=== PATIENT | male | born 1990 | race Caucasian/White ===

== ENCOUNTER 2023-10-15 15:43 | Inpatient (IN) | payer MEDICAID ==
[~2023-10-15] VITALS: Ht 172.7 cm; Wt 49.4 kg
[2023-10-15 15:55] VITALS: BP_SYST 82; PULSE 111; RESP 18; TEMP 96; O2SAT 96
[2023-10-15] MEDS: CLINDAMYCIN 900 mg/50mL D5W 50 ML IV ONE (16:45)
[2023-10-15] MEDS: VANCOMYCIN HCL 1,000 MG in NS 250 ML IV ONE (16:45)
[2023-10-15] MEDS: NACL 0.9% 2,000 ML IV ONE (17:19)
[2023-10-15] MEDS ORDERED: PIPERACILLIN/TAZOBACTAM 3.375 GM/VIAL (ZOSYN) IV ONE (17:23)
[2023-10-15] MEDS ORDERED: VANCOMYCIN HCL 1000 MG/VIAL IV ONE (17:23)
[2023-10-15] MEDS: PIPERACILLIN/TAZO 3.375 GM in NS 50 ML IV ONE (17:51)
[2023-10-15 18:27] LABS: INR 2.8 (0.80-1.20)
[2023-10-15] MEDS: DEXTROSE 50% JECT 50 ML DISP.SYRIN IVP ONE (18:37)
[2023-10-15 18:39] LABS: PROTHROMBIN TIME 28.1 SECS (9.5-12.5)
[2023-10-15 18:56] LABS: ALANINE AMINOTRANSFERASE 17 U/L (12-78); ALBUMIN 0.9 g/dL (3.4-4.8); ALCOHOL, BLOOD < 3 mg/dL (<10); ANION GAP 11 (5-15); ASPARTATE AMINOTRANSFERASE 37 U/L (10-37); BILIRUBIN,DIRECT 2.5 mg/dL (0.0-0.3); CARBON DIOXIDE 19 mmol/L (23-29); CHLORIDE 99 mmol/L (98-107); CREATININE 1.86 mg/dL (0.55-1.30); GFR AFRICAN AMERICAN 55 mL/min (>90); GFR NON AFRICAN-AMERICAN 45 mL/min (>90); GLUCOSE 65 mg/dL (74-106); SODIUM SERUM 129 mmol/L (136-145); THYROID STIMULATING HORMONE 2.52 uIu/mL (0.34-4.82); TOTAL BILIRUBIN 3.4 mg/dL (0.0-1.0); TOTAL PROTEIN, SERUM 6.8 g/dL (6.4-8.3); UREA NITROGEN, BLOOD 26 mg/dL (8-21)
[2023-10-15 18:57] LABS: CALCIUM 6.6 mg/dL (8.4-11.0)
[2023-10-15 18:59] LABS: HEMOGLOBIN 7.1 g/dL (14.0-18.0); RED CELL DISTRIBUTION WIDTH 16.2 % (9.0-15.0)
[2023-10-15] MEDS: NACL 0.9% 1,000 ML IV ONE (19:05)
[2023-10-15 19:22] LABS: PLATELET COUNT (AUTO) 39 K/uL (130-430); WHITE BLOOD COUNT (AUTO) 1.6 K/uL (4.8-10.8)
[2023-10-15] MEDS ORDERED: NOREPINEPHRINE 4 MG/4 ML VIAL IV ONE (19:57)
[2023-10-15 20:10] LABS: PHOSPHORUS 3.5 mg/dL (2.7-4.5)
[2023-10-15] MEDS: NOREPINEPHRINE BITARTRATE 4 MG in NS 246 ML IV ONE (20:30)
[2023-10-15 20:31] LABS: ANISOCYTOSIS 1+; ATYPICAL LYMPHOCYTES % 9 % (0-0); BAND % (MANUAL) 12 % (0-6); BASOPHILS % (MANUAL) 0 % (0-2); EOSINOPHILS % (MANUAL) 0 % (0-7); LYMPHOCYTES % (MANUAL) 15 % (20-46); MONOCYTES % (MANUAL) 58 % (0-11); PLATELET ESTIMATE DECREASED (ADEQUATE)
[2023-10-15 20:32] LABS: OVALOCYTES MODERATE; TEAR DROP CELLS MODERATE
[2023-10-15] MEDS ORDERED: CALCIUM GLUCONATE 1 GM/10 ML VIAL ONE (21:45)
[2023-10-15] MEDS: ALBUMIN HUMAN 25% 100 ML IV ONE (22:03)
[2023-10-15 22:19] LABS: RED BLOOD CELL COUNT(AUTO) 2.29 MIL/uL (4.2-6.2)
[2023-10-15 22:24] LABS: MEAN CORPUSCULAR VOLUME 87 fL (79.0-98.0)
[2023-10-15 22:28] LABS: MEAN CORPUSCULAR HEMOGLOBIN 31 pg (27-31)
[2023-10-15 22:29] LABS: MEAN CORPUSCULAR HGB CONC 35 % (32-36)
[2023-10-15 22:38] LABS: ERYTHROCYTE SEDIMENTATION RATE 36 MM/HR (0-15)
[2023-10-15] MEDS: CALCIUM GLUCONATE 1 GM in NS 100 ML IV ONE (23:30)
[2023-10-16] VITALS (22 sets, daily range): BP systolic 81–123; PULSE 86–107; RESP 15–26; TEMP 97.1–97.6; O2SAT 91–100
[2023-10-16] MEDS: NACL 0.9% 1,000 ML IV SCH (00:23)
[2023-10-16] MEDS: KCL 20 mEq in 100 mL (PREMIX) 100 ML IV ONE (00:33)
[2023-10-16] MEDS: MAGNESIUM SULFATE 50 ML IV ONE (04:16)
[2023-10-16] MEDS: NOREPINEPHRINE BITARTRATE 4 MG in NS 246 ML IV PRN (06:53)
[2023-10-16 09:20] LABS: INR 2.7 (0.80-1.20); PROTHROMBIN TIME 26.3 SECS (9.5-12.5)
[2023-10-16] MEDS ORDERED: INSULIN REGULAR, HUMAN 100 UNITS/ML, 3 ML VIAL (humuLIN R) SUBCUT PRN (09:30)
[2023-10-16] MEDS ORDERED: NALOXONE HCL 0.4 MG/ML AMP (NARCAN) IVP PRN ×2 (09:30)
[2023-10-16] MEDS ORDERED: HYDROcodone/ACETAMIN 10-325 MG TAB PO PRN (09:30)
[2023-10-16] MEDS ORDERED: ACETAMINOPHEN 325 MG TABLET PO PRN (10:00)
[2023-10-16 10:48] LABS: BASOPHILS % (AUTO) 0.3 % (0.0-2.0); EOSINOPHILS % (AUTO) 0.4 % (0.0-4.0); HEMATOCRIT 30.5 % (36-54); HEMOGLOBIN 10.7 g/dL (14.0-18.0); LYMPHOCYTES # (AUTO) 1.5 K/uL (1.0-5.5); LYMPHOCYTES % (AUTO) 37.1 % (20.5-51.5); MEAN CORPUSCULAR HEMOGLOBIN 31 pg (27-31); MEAN CORPUSCULAR HGB CONC 35 % (32-36); MEAN CORPUSCULAR VOLUME 87 fL (79.0-98.0); MONOCYTES # (AUTO) 1.2 K/uL (0.0-1.0); MONOCYTES % (AUTO) 30.8 % (1.7-9.3); NEUTROPHILS # (AUTO) 1.3 K/uL (1.8-7.7); NEUTROPHILS % (AUTO) 31.4 % (40.0-70.0); PLATELET COUNT (AUTO) 73 K/uL (130-430); RED BLOOD CELL COUNT(AUTO) 3.49 MIL/uL (4.2-6.2); RED CELL DISTRIBUTION WIDTH 16.9 % (9.0-15.0)
[2023-10-16 11:06] LABS: ALBUMIN 1.1 g/dL (3.4-4.8); CREATININE 1.72 mg/dL (0.55-1.30); PHOSPHORUS 3.3 mg/dL (2.7-4.5); POTASSIUM 3.3 mmol/L (3.5-5.1); TOTAL BILIRUBIN 4.8 mg/dL (0.0-1.0); TOTAL PROTEIN, SERUM 6.4 g/dL (6.4-8.3)
[2023-10-16 11:07] LABS: CALCIUM 6.9 mg/dL (8.4-11.0)
[2023-10-16] MEDS: PIPERACILLIN/TAZO 3.375/DEX-IS 50 ML IV SCH (12:09)
[2023-10-16] MEDS ORDERED: FOLIC ACID 1 MG, THIAMINE HCL 100 MG, MAGNESIUM SULFATE 1 GM, MVI 10 ML in NACL 0.9% 1,... IV SCH (16:15)
[2023-10-16] MEDS: FOLIC ACID 1 MG, MVI 10 ML in NACL 0.9% 1,000 ML IV SCH (18:05)
[2023-10-16] MEDS: THIAMINE HCL 100 MG, MAGNESIUM SULFATE 1 GM in NS 100 ML IV SCH (18:05)
[2023-10-16] MEDS ORDERED: NOREPINEPHRINE BITARTRATE 4 MG in NS 246 ML IV PRN (19:00)
[2023-10-16] MEDS: CLINDAMYCIN 600 mg/50mL D5W 50 ML IV SCH (19:11)
[2023-10-16] MEDS: HYDROcodone/ACETAMIN 5-325 MG TAB (NORCO/ VICODIN) PO PRN (20:00)
[2023-10-17] VITALS (26 sets, daily range): BP systolic 76–129; PULSE 79–108; RESP 10–24; TEMP 96.7–98.6; O2SAT 89–100
[2023-10-17 05:31] LABS: CREATININE 1.76 mg/dL (0.55-1.30); PHOSPHORUS 3.4 mg/dL (2.7-4.5)
[2023-10-17 06:11] LABS: CALCIUM 6.3 mg/dL (8.4-11.0)
[2023-10-17 08:39] LABS: BASOPHILS % (AUTO) 0.2 % (0.0-2.0); EOSINOPHILS % (AUTO) 0.3 % (0.0-4.0); LYMPHOCYTES # (AUTO) 2.6 K/uL (1.0-5.5); LYMPHOCYTES % (AUTO) 29.6 % (20.5-51.5); MEAN CORPUSCULAR HEMOGLOBIN 30 pg (27-31); MEAN CORPUSCULAR HGB CONC 35 % (32-36); MEAN CORPUSCULAR VOLUME 86 fL (79.0-98.0); MONOCYTES # (AUTO) 1.9 K/uL (0.0-1.0); MONOCYTES % (AUTO) 22.4 % (1.7-9.3); NEUTROPHILS # (AUTO) 4.1 K/uL (1.8-7.7); PLATELET COUNT (AUTO) 50 K/uL (130-430); RED BLOOD CELL COUNT(AUTO) 3.01 MIL/uL (4.2-6.2); RED CELL DISTRIBUTION WIDTH 17.2 % (9.0-15.0); WHITE BLOOD COUNT (AUTO) 8.6 K/uL (4.8-10.8)
[2023-10-17 08:58] LABS: TOTAL IRON BIND. CAPACITY 79 ug/dL (250-450)
[2023-10-17 09:30] LABS: NEUTROPHILS % (AUTO) 47.5 % (40.0-70.0)
[2023-10-17] MEDS: ALBUMIN HUMAN 5% 500 ML IV ONE ×2 (10:00→12:46)
[2023-10-17] MEDS: POTASSIUM CHLORIDE 20 MEQ TABLET.ER PO ONE (12:44)
[2023-10-17] MEDS: CALCIUM GLUC 2 GM/100ML-NACL 100 ML IV ONE (12:45)
[2023-10-17] MEDS: CEFEPIME 1 GM in D5W 50 ML IV SCH (22:22)
[2023-10-18] VITALS (22 sets, daily range): BP systolic 91–129; PULSE 87–99; RESP 10–23; TEMP 96–99; O2SAT 92–100
[2023-10-18 05:22] LABS: ERYTHROCYTE SEDIMENTATION RATE 5 MM/HR (0-15)
[2023-10-18 05:29] LABS: BASOPHILS % (AUTO) 0.4 % (0.0-2.0); EOSINOPHILS # (AUTO) 0.1 K/uL (0.0-0.4); EOSINOPHILS % (AUTO) 1.1 % (0.0-4.0); LYMPHOCYTES # (AUTO) 1.6 K/uL (1.0-5.5); LYMPHOCYTES % (AUTO) 28.4 % (20.5-51.5); MEAN CORPUSCULAR HEMOGLOBIN 33 pg (27-31); MEAN CORPUSCULAR HGB CONC 36 % (32-36); MEAN CORPUSCULAR VOLUME 92 fL (79.0-98.0); MONOCYTES % (AUTO) 17.5 % (1.7-9.3); NEUTROPHILS % (AUTO) 52.6 % (40.0-70.0); RED BLOOD CELL COUNT(AUTO) 2.32 MIL/uL (4.2-6.2); RED CELL DISTRIBUTION WIDTH 17.2 % (9.0-15.0); WHITE BLOOD COUNT (AUTO) 5.7 K/uL (4.8-10.8)
[2023-10-18 05:56] LABS: ALBUMIN 1.4 g/dL (3.4-4.8); CALCIUM 7.2 mg/dL (8.4-11.0); CREATININE 2.14 mg/dL (0.55-1.30); PHOSPHORUS 2.4 mg/dL (2.7-4.5); TOTAL BILIRUBIN 6.3 mg/dL (0.0-1.0); TOTAL PROTEIN, SERUM 5.4 g/dL (6.4-8.3)
[2023-10-18 06:15] LABS: HEMATOCRIT 21.3 % (36-54)
[2023-10-18 06:16] LABS: HEMOGLOBIN 7.7 g/dL (14.0-18.0); PLATELET COUNT (AUTO) 34 K/uL (130-430)
[2023-10-18 06:30] LABS: POTASSIUM 2.8 mmol/L (3.5-5.1)
[2023-10-18 08:08] LABS: FERRITIN 562 ng/mL (30-400); FOLATE (FOLIC ACID) 3.9 ng/mL (>3.0)
[2023-10-18 09:23] LABS: INR 1.5 (0.80-1.20)
[2023-10-18] MEDS ORDERED: K PHOS 30 MM in NS 250 ML IV ONE (09:45)
[2023-10-18 10:00] LABS: BASOPHILS % (AUTO) 0.2 % (0.0-2.0); EOSINOPHILS # (AUTO) 0.1 K/uL (0.0-0.4); EOSINOPHILS % (AUTO) 1.1 % (0.0-4.0); HEMATOCRIT 24.3 % (36-54); HEMOGLOBIN 8.6 g/dL (14.0-18.0); LYMPHOCYTES # (AUTO) 2.4 K/uL (1.0-5.5); LYMPHOCYTES % (AUTO) 31.4 % (20.5-51.5); MEAN CORPUSCULAR HEMOGLOBIN 31 pg (27-31); MEAN CORPUSCULAR HGB CONC 35 % (32-36); MEAN CORPUSCULAR VOLUME 89 fL (79.0-98.0); MONOCYTES # (AUTO) 1.1 K/uL (0.0-1.0); RED BLOOD CELL COUNT(AUTO) 2.73 MIL/uL (4.2-6.2); RED CELL DISTRIBUTION WIDTH 17.1 % (9.0-15.0); WHITE BLOOD COUNT (AUTO) 7.6 K/uL (4.8-10.8)
[2023-10-18 10:04] LABS: PLATELET COUNT (AUTO) 45 K/uL (130-430)
[2023-10-18 10:05] LABS: NEUTROPHILS % (AUTO) 52.3 % (40.0-70.0)
[2023-10-18 11:12] LABS: BILIRUBIN,URINE 1+ (NEGATIVE); BLOOD, URINE 3+ (NEGATIVE); CLARITY/URINE SLIGHTLY HAZY (CLEAR); COLOR,URINE YELLOW (YELLOW); GLUCOSE,URINE NEGATIVE (NEGATIVE); KETONES,URINE TRACE (NEGATIVE); LEUKOCYTE ESTERASE ,URINE NEGATIVE (NEGATIVE); NITRITE, URINE NEGATIVE (NEGATIVE); PH,URINE 5.5 (5.0-8.0); PROTEIN URINE TRACE (NEGATIVE); UROBILINOGEN,URINE 0.2 (0.2-1.0)
[2023-10-18 11:25] LABS: BACTERIA,URINE None Seen /HPF (None Seen); WBC,URINE 0-3 /HPF (0-3)
[2023-10-18 11:26] LABS: BARBITURATE, URINE NEGATIVE (NEG <=200); BENZODIAZEPINE, URINE NEGATIVE (NEG <=150); CANNABINOID, URINE NEGATIVE (NEG <=50); COCAINE, URINE NEGATIVE (NEG <=150); HYALINE CASTS, URINE 0-1 /LPF (None Seen); METHAMPHETAMINES SCREEN,URINE NEGATIVE (NEG <=500); URINE AMPHETAMINE NEGATIVE (NEG <=500); URINE METHADONE NEGATIVE (NEG <=200)
[2023-10-18 11:27] LABS: OPIATE, URINE POSITIVE (NEG <=100); PHENCYCLIDINE SCREEN,URINE NEGATIVE (NEG <=25); UR TRICYCLIC ANTIDEPRESSANTS NEGATIVE (NEG <=300); URINE OXYCODONE SCREEN NEGATIVE (NEG <=100)
[2023-10-18] MEDS: K PHOS 30 MM in NS 250 ML IV ONE (12:14)
[2023-10-18] MEDS ORDERED: DEXAMETHASONE SOD PHOSPHATE 4 MG/ML VIAL ONE (17:26)
[2023-10-18] MEDS ORDERED: ONDANSETRON HCL 4 MG/2 ML VIAL ONE (17:26)
[2023-10-18] MEDS ORDERED: PROPOFOL 200MG/ 20ML VIAL (DIPRIVAN) IV ONE (17:26)
[2023-10-18] MEDS ORDERED: NS 1000 ML IV.SOLN IV ONE (17:26)
[2023-10-18] MEDS ORDERED: D5W 50 ML IV.SOLN IV ONE (17:26)
[2023-10-18] MEDS ORDERED: ETOMIDATE 20 MG/ 10 ML VIAL (AMIDATE) ONE (17:26)
[2023-10-18] MEDS ORDERED: SEVOFLURANE 15 MIN GAS INH ONE (17:26)
[2023-10-18] MEDS ORDERED: SUCCINYLCHOLINE CHLORIDE 20 MG/ML(QUELICIN) ONE (17:26)
[2023-10-18] MEDS ORDERED: NS IRRIG SOLN 1000 ML IR ONE (17:26)
[2023-10-18] MEDS ORDERED: IPRATROPIUM/ALBUTEROL SULFATE 3 ML AMPUL.NEB (DUONEB) ONE (18:55)
[2023-10-18] MEDS: IPRATROPIUM/ALBUTEROL SULFATE 3 ML AMPUL.NEB (DUONEB) INH ONE (19:00)
[2023-10-18] MEDS: IPRATROPIUM/ALBUTEROL SULFATE 3 ML AMPUL.NEB (DUONEB) ONE (20:10)
[2023-10-19] VITALS (29 sets, daily range): BP systolic 95–125; PULSE 64–117; RESP 12–30; TEMP 95.1–99.5; O2SAT 79–100
[2023-10-19 06:49] LABS: BASOPHILS % (AUTO) 0.7 % (0.0-2.0); EOSINOPHILS # (AUTO) 0.1 K/uL (0.0-0.4); EOSINOPHILS % (AUTO) 1.3 % (0.0-4.0); HEMOGLOBIN 7.9 g/dL (14.0-18.0); LYMPHOCYTES # (AUTO) 1.6 K/uL (1.0-5.5); LYMPHOCYTES % (AUTO) 28.1 % (20.5-51.5); MEAN CORPUSCULAR HEMOGLOBIN 35 pg (27-31); MEAN CORPUSCULAR HGB CONC 38 % (32-36); MEAN CORPUSCULAR VOLUME 93 fL (79.0-98.0); MONOCYTES # (AUTO) 0.5 K/uL (0.0-1.0); MONOCYTES % (AUTO) 8.9 % (1.7-9.3); NEUTROPHILS # (AUTO) 3.4 K/uL (1.8-7.7); RED BLOOD CELL COUNT(AUTO) 2.25 MIL/uL (4.2-6.2); RED CELL DISTRIBUTION WIDTH 17.6 % (9.0-15.0); WHITE BLOOD COUNT (AUTO) 5.6 K/uL (4.8-10.8)
[2023-10-19 06:52] LABS: INR 1.4 (0.80-1.20); PROTHROMBIN TIME 14.4 SECS (9.5-12.5)
[2023-10-19 07:03] LABS: ALBUMIN 1.4 g/dL (3.4-4.8); CALCIUM 7.1 mg/dL (8.4-11.0); CREATININE 2.28 mg/dL (0.55-1.30); PHOSPHORUS 5.6 mg/dL (2.7-4.5); POTASSIUM 3.5 mmol/L (3.5-5.1); TOTAL BILIRUBIN 6.6 mg/dL (0.0-1.0)
[2023-10-19 07:31] LABS: HEMATOCRIT 20.9 % (36-54)
[2023-10-19 09:14] LABS: ERYTHROCYTE SEDIMENTATION RATE 13 MM/HR (0-15)
[2023-10-19 09:30] LABS: PLATELET COUNT (AUTO) 34 K/uL (130-430)
[2023-10-19] MEDS: NACL 0.9% 1,000 ML IV SCH (15:45)
[2023-10-20] VITALS (31 sets, daily range): BP systolic 105–158; PULSE 77–115; RESP 16–38; TEMP 95.3–97.8; O2SAT 67–99
[2023-10-20] MEDS: MORPHINE 4 MG INJ. 4 MG/ML VIAL IVP PRN (01:10)
[2023-10-20 03:53] LABS: BLOOD GAS BASE EXCESS -10.1 mmol/L (-3.0-3.0); BLOOD GAS HCO3 14.9 mmol/L (21.0-27.0); BLOOD GAS PO2 38.2 mmHg (75.0-100.0)
[2023-10-20 03:54] LABS: ABG O2 SAT% ESTIMATE 67.6 % (94.0-100.0); ALLEN'S TEST POSITIVE (P)
[2023-10-20 06:24] LABS: ERYTHROCYTE SEDIMENTATION RATE 17 MM/HR (0-15)
[2023-10-20 06:34] LABS: BASOPHILS # (AUTO) 0.1 K/uL (0.0-0.2); EOSINOPHILS # (AUTO) 0.4 K/uL (0.0-0.4); EOSINOPHILS % (AUTO) 3.8 % (0.0-4.0); HEMOGLOBIN 7.6 g/dL (14.0-18.0); LYMPHOCYTES # (AUTO) 2.8 K/uL (1.0-5.5); LYMPHOCYTES % (AUTO) 24.9 % (20.5-51.5); MEAN CORPUSCULAR HEMOGLOBIN 34 pg (27-31); MEAN CORPUSCULAR HGB CONC 38 % (32-36); MEAN CORPUSCULAR VOLUME 90 fL (79.0-98.0); MONOCYTES # (AUTO) 0.7 K/uL (0.0-1.0); MONOCYTES % (AUTO) 6.3 % (1.7-9.3); NEUTROPHILS # (AUTO) 7.1 K/uL (1.8-7.7); PLATELET COUNT (AUTO) 78 K/uL (130-430); RED BLOOD CELL COUNT(AUTO) 2.24 MIL/uL (4.2-6.2); RED CELL DISTRIBUTION WIDTH 17.6 % (9.0-15.0); WHITE BLOOD COUNT (AUTO) 11.1 K/uL (4.8-10.8)
[2023-10-20 06:38] LABS: HEMATOCRIT 20.2 % (36-54)
[2023-10-20 06:45] LABS: CREATININE 2.32 mg/dL (0.55-1.30); PHOSPHORUS 5.1 mg/dL (2.7-4.5); POTASSIUM 3.3 mmol/L (3.5-5.1)
[2023-10-20] MEDS ORDERED: *TPN PER PHARMACY XX PRN (12:15)
[2023-10-20] MEDS ORDERED: KCL 40 mEq in 100 mL (PREMIX) 100 ML IV ONE (12:15)
[2023-10-20] MEDS: POTASSIUM CHLORIDE 20 mEq in 100 mL (PREMIX) 100 ML x 2 doses IV SCH (12:50)
[2023-10-20] MEDS: FUROSEMIDE 40 MG/4 ML VIAL ONE (15:19)
[2023-10-20] MEDS: FUROSEMIDE 40 MG/4 ML VIAL IVP ONE (15:26)
[2023-10-20] MEDS: METHYLPREDNISOLONE SOD SUCC 40 MG/ML VIAL IVP ONE (15:26)
[2023-10-20] MEDS: DEXTROSE 50% JECT 50 ML DISP.SYRIN IVP PRN (21:39)
[2023-10-20] MEDS: LORazepam 2 MG/ML VIAL IVP PRN (23:22)
[2023-10-21] VITALS (37 sets, daily range): BP systolic 92–167; PULSE 65–94; RESP 18–34; TEMP 96.2–97; O2SAT 89–98
[2023-10-21 05:03] LABS: ERYTHROCYTE SEDIMENTATION RATE 16 MM/HR (0-15)
[2023-10-21 05:12] LABS: BASOPHILS % (AUTO) 0.3 % (0.0-2.0); EOSINOPHILS # (AUTO) 0.2 K/uL (0.0-0.4); EOSINOPHILS % (AUTO) 1.3 % (0.0-4.0); LYMPHOCYTES % (AUTO) 14.7 % (20.5-51.5); MEAN CORPUSCULAR HEMOGLOBIN 32 pg (27-31); MEAN CORPUSCULAR HGB CONC 36 % (32-36); MEAN CORPUSCULAR VOLUME 89 fL (79.0-98.0); MONOCYTES # (AUTO) 0.6 K/uL (0.0-1.0); MONOCYTES % (AUTO) 4.1 % (1.7-9.3); NEUTROPHILS # (AUTO) 11.1 K/uL (1.8-7.7); NEUTROPHILS % (AUTO) 79.6 % (40.0-70.0); PLATELET COUNT (AUTO) 53 K/uL (130-430); RED BLOOD CELL COUNT(AUTO) 2.13 MIL/uL (4.2-6.2); RED CELL DISTRIBUTION WIDTH 17.4 % (9.0-15.0); WHITE BLOOD COUNT (AUTO) 13.9 K/uL (4.8-10.8)
[2023-10-21 05:37] LABS: ALBUMIN 1.5 g/dL (3.4-4.8); CALCIUM 7.1 mg/dL (8.4-11.0); CREATININE 2.42 mg/dL (0.55-1.30); PHOSPHORUS 7.1 mg/dL (2.7-4.5); POTASSIUM 4.4 mmol/L (3.5-5.1); TOTAL BILIRUBIN 6.7 mg/dL (0.0-1.0); TOTAL PROTEIN, SERUM 6.6 g/dL (6.4-8.3)
[2023-10-21 05:49] LABS: HEMOGLOBIN 6.9 g/dL (14.0-18.0)
[2023-10-21] MEDS: METHYLPREDNISOLONE SOD SUCC 40 MG/ML VIAL IVP SCH (08:34)
[2023-10-21] MEDS: MVI IV SCH (22:22)
[2023-10-21] MEDS: POTASSIUM ACETATE IV SCH (22:22)
[2023-10-21] MEDS: TPN CENTRAL IV SCH (22:22)
[2023-10-21] MEDS: [UNRECOGNIZED DRUG - OTHER] IV SCH (22:22)
[2023-10-21] MEDS: SODIUM ACETATE IV SCH (22:22)
[2023-10-21] MEDS: FOLIC ACID IV SCH (22:23)
[2023-10-21] MEDS: THIAMINE HCL IV SCH (22:23)
[2023-10-21] MEDS: NS IV SCH (22:23)
[2023-10-21] MEDS: IPRATROPIUM/ALBUTEROL SULFATE 3 ML AMPUL.NEB (DUONEB) ONE (23:38)
[2023-10-22] VITALS (34 sets, daily range): BP systolic 98–152; PULSE 74–101; RESP 23–38; TEMP 96.5–97.5; O2SAT 90–99
[2023-10-22] MEDS: IPRATROPIUM/ALBUTEROL SULFATE 3 ML AMPUL.NEB (DUONEB) INH SCH (01:54)
[2023-10-22 05:15] LABS: HEMATOCRIT 22.5 % (36-54); HEMOGLOBIN 8.1 g/dL (14.0-18.0); MEAN CORPUSCULAR HEMOGLOBIN 32 pg (27-31); MEAN CORPUSCULAR HGB CONC 36 % (32-36); MEAN CORPUSCULAR VOLUME 88 fL (79.0-98.0); PLATELET COUNT (AUTO) 71 K/uL (130-430); RED BLOOD CELL COUNT(AUTO) 2.55 MIL/uL (4.2-6.2); RED CELL DISTRIBUTION WIDTH 16.6 % (9.0-15.0); WHITE BLOOD COUNT (AUTO) 14.4 K/uL (4.8-10.8)
[2023-10-22 05:58] LABS: ALBUMIN 1.4 g/dL (3.4-4.8); CREATININE 2.44 mg/dL (0.55-1.30); PHOSPHORUS 7.5 mg/dL (2.7-4.5); POTASSIUM 4.2 mmol/L (3.5-5.1); TOTAL BILIRUBIN 6.5 mg/dL (0.0-1.0); TOTAL PROTEIN, SERUM 6.2 g/dL (6.4-8.3)
[2023-10-22 06:23] LABS: CALCIUM 6.5 mg/dL (8.4-11.0)
[2023-10-22] MEDS: PANTOPRAZOLE SODIUM 40 MG/VIAL (PROTONIX) IVP SCH (08:49)
[2023-10-22] MEDS: NS 500 ML IV ONE (09:59)
[2023-10-22 10:59] LABS: BAND % (MANUAL) 13 % (0-6); EOSINOPHILS % (MANUAL) 0 % (0-7); LYMPHOCYTES % (MANUAL) 2 % (20-46); MONOCYTES % (MANUAL) 3 % (0-11)
[2023-10-22 11:00] LABS: ANISOCYTOSIS 1+; BASOPHILS % (MANUAL) 0 % (0-2); METAMYELOCYTES % 2 % (0-0); MYELOCYTES % 1 % (0-0); PLATELET ESTIMATE DECREASED (ADEQUATE); POLYCHROMASIA SLIGHT
[2023-10-22] MEDS: LACTOBACILLUS RHAMNOSUS GG 1 CAP CAPSULE PO ONE (12:13)
[2023-10-22] MEDS: LEVOFLOXACIN 250 MG/D5W 50 ML IV SCH (12:13)
[2023-10-22] MEDS: INSULIN REGULAR, HUMAN 100 UNITS/ML, 3 ML VIAL (humuLIN R) SUBCUT PRN (12:20)
[2023-10-22] MEDS ORDERED: BISACODYL 10 MG/SUPPOSITORY RC PRN (15:30)
[2023-10-22] MEDS: TPN CENTRAL IV SCH (19:57)
[2023-10-22] MEDS: [UNRECOGNIZED DRUG - OTHER] IV SCH (19:57)
[2023-10-22] MEDS: MVI IV SCH (19:57)
[2023-10-22] MEDS: POTASSIUM ACETATE IV SCH (19:57)
[2023-10-22] MEDS: SODIUM ACETATE IV SCH (19:57)
[2023-10-22] MEDS: LACTOBACILLUS RHAMNOSUS GG 1 CAP CAPSULE PO SCH (20:26)
[2023-10-22 22:48] LABS: ABG O2 SAT% ESTIMATE 93.2 % (94.0-100.0); BLOOD GAS BASE EXCESS -10.4 mmol/L (-3.0-3.0); BLOOD GAS HCO3 15.7 mmol/L (21.0-27.0); BLOOD GAS PCO2 35.7 mmHg (32.0-45.0); BLOOD GAS PH 7.261 (7.350-7.450)
[2023-10-22 22:49] LABS: ALLEN'S TEST POSITIVE (P)
[2023-10-22] MEDS ORDERED: ETOMIDATE 20 MG/ 10 ML VIAL (AMIDATE) ONE (23:00)
[2023-10-22] MEDS ORDERED: SUCCINYLCHOLINE CHLORIDE 20 MG/ML(QUELICIN) ONE (23:00)
[2023-10-22] MEDS ORDERED: MIDAZOLAM IN NACL,ISO-OSMOT/PF 100 ML IV PRN (23:30)
[2023-10-22] MEDS: FENTANYL CITRATE-0.9 % NACL/PF 100 ML IV ONE (23:42)
[2023-10-22] MEDS: FENTANYL CITRATE-0.9 % NACL/PF 100 ML IV PRN (23:45)
[2023-10-23] VITALS (37 sets, daily range): BP systolic 99–130; PULSE 86–121; RESP 16–30; TEMP 94.5–98; O2SAT 87–100
[2023-10-23] MEDS: MIDAZOLAM IN NACL,ISO-OSMOT/PF 100 ML IV ONE (01:10)
[2023-10-23] MEDS: MIDAZOLAM IN NACL,ISO-OSMOT/PF 100 ML IV PRN ×2 (01:11→19:58)
[2023-10-23 01:33] LABS: BLOOD GAS PCO2 50.1 mmHg (32.0-45.0); BLOOD GAS PO2 72.7 mmHg (75.0-100.0)
[2023-10-23 01:34] LABS: ABG O2 SAT% ESTIMATE 88.1 % (94.0-100.0); ALLEN'S TEST POSITIVE (P); BLOOD GAS BASE EXCESS -14.9 mmol/L (-3.0-3.0); BLOOD GAS HCO3 14.9 mmol/L (21.0-27.0)
[2023-10-23] MEDS: SODIUM BICARBONATE 8.4% JECT 50 MEQ/50 ML SYRINGE IVP ONE ×2 (02:52→12:47)
[2023-10-23] MEDS: SODIUM BICARBONATE 8.4% JECT 50 MEQ/50 ML SYRINGE ONE (02:52)
[2023-10-23 04:58] LABS: BASOPHILS % (AUTO) 0.1 % (0.0-2.0); LYMPHOCYTES # (AUTO) 0.7 K/uL (1.0-5.5); LYMPHOCYTES % (AUTO) 7.1 % (20.5-51.5); MEAN CORPUSCULAR HEMOGLOBIN 32 pg (27-31); MEAN CORPUSCULAR HGB CONC 36 % (32-36); MEAN CORPUSCULAR VOLUME 87 fL (79.0-98.0); MONOCYTES # (AUTO) 0.3 K/uL (0.0-1.0); MONOCYTES % (AUTO) 2.7 % (1.7-9.3); NEUTROPHILS # (AUTO) 8.5 K/uL (1.8-7.7); NEUTROPHILS % (AUTO) 90.1 % (40.0-70.0); PLATELET COUNT (AUTO) 62 K/uL (130-430); RED BLOOD CELL COUNT(AUTO) 2.14 MIL/uL (4.2-6.2); RED CELL DISTRIBUTION WIDTH 16.9 % (9.0-15.0)
[2023-10-23 07:42] LABS: ALBUMIN 1.4 g/dL (3.4-4.8); CREATININE 2.21 mg/dL (0.55-1.30); PHOSPHORUS 7.7 mg/dL (2.7-4.5); POTASSIUM 3.8 mmol/L (3.5-5.1); TOTAL BILIRUBIN 4.5 mg/dL (0.0-1.0); TOTAL PROTEIN, SERUM 5.6 g/dL (6.4-8.3)
[2023-10-23 07:47] LABS: CALCIUM 5.9 mg/dL (8.4-11.0)
[2023-10-23 08:29] LABS: HEMATOCRIT 18.7 % (36-54); HEMOGLOBIN 6.8 g/dL (14.0-18.0)
[2023-10-23 08:33] LABS: BLOOD GAS HCO3 18.3 mmol/L (21.0-27.0); BLOOD GAS PO2 80.6 mmHg (75.0-100.0)
[2023-10-23 08:36] LABS: ALLEN'S TEST POSITIVE (P)
[2023-10-23 09:10] LABS: WHITE BLOOD COUNT (AUTO) 9.5 K/uL (4.8-10.8)
[2023-10-23 10:40] LABS: HEMOGLOBIN 6.6 g/dL (14.0-18.0)
[2023-10-23 10:41] LABS: HEMATOCRIT 18.9 % (36-54)
[2023-10-23 11:44] LABS: ABG O2 SAT% ESTIMATE 96.4 % (94.0-100.0); BLOOD GAS PO2 99.3 mmHg (75.0-100.0)
[2023-10-23 11:48] LABS: ALLEN'S TEST POSITIVE (P)
[2023-10-23 11:49] LABS: BLOOD GAS BASE EXCESS -8.1 mmol/L (-3.0-3.0); BLOOD GAS HCO3 19.3 mmol/L (21.0-27.0)
[2023-10-23] MEDS: ALBUMIN HUMAN 25% 50 ML IV ONE (13:30)
[2023-10-23] MEDS: CALCIUM GLUC 1 GM/100ML-NACL 100 ML IV ONE (14:30)
[2023-10-23] MEDS: FENTANYL CITRATE-0.9 % NACL/PF 100 ML IV PRN (16:30)
[2023-10-23] MEDS: SODIUM ACETATE IV SCH (20:00)
[2023-10-23] MEDS: [UNRECOGNIZED DRUG - OTHER] IV SCH (20:00)
[2023-10-23] MEDS: POTASSIUM ACETATE IV SCH (20:00)
[2023-10-23] MEDS: TPN CENTRAL IV SCH (20:00)
[2023-10-23] MEDS: PANTOPRAZOLE SODIUM 40 MG/VIAL (PROTONIX) IVP SCH (20:01)
[2023-10-24] VITALS (36 sets, daily range): BP systolic 99–133; PULSE 81–117; RESP 26–31; TEMP 97.1–98; O2SAT 90–100
[2023-10-24 00:54] LABS: BASOPHILS % (AUTO) 0.2 % (0.0-2.0); LYMPHOCYTES # (AUTO) 0.9 K/uL (1.0-5.5); LYMPHOCYTES % (AUTO) 16.6 % (20.5-51.5); MEAN CORPUSCULAR HEMOGLOBIN 31 pg (27-31); MEAN CORPUSCULAR HGB CONC 35 % (32-36); MEAN CORPUSCULAR VOLUME 88 fL (79.0-98.0); MONOCYTES # (AUTO) 0.2 K/uL (0.0-1.0); MONOCYTES % (AUTO) 3.3 % (1.7-9.3); NEUTROPHILS # (AUTO) 4.4 K/uL (1.8-7.7); NEUTROPHILS % (AUTO) 79.9 % (40.0-70.0); RED BLOOD CELL COUNT(AUTO) 2.09 MIL/uL (4.2-6.2); RED CELL DISTRIBUTION WIDTH 15.8 % (9.0-15.0); WHITE BLOOD COUNT (AUTO) 5.5 K/uL (4.8-10.8)
[2023-10-24 00:56] LABS: HEMATOCRIT 18.5 % (36-54); HEMOGLOBIN 6.5 g/dL (14.0-18.0); PLATELET COUNT (AUTO) 46 K/uL (130-430)
[2023-10-24 06:07] LABS: ALBUMIN 1.4 g/dL (3.4-4.8); CREATININE 2.33 mg/dL (0.55-1.30); PHOSPHORUS 5.8 mg/dL (2.7-4.5); TOTAL BILIRUBIN 3.7 mg/dL (0.0-1.0); TOTAL PROTEIN, SERUM 5.6 g/dL (6.4-8.3)
[2023-10-24 07:23] LABS: ABG O2 SAT% ESTIMATE 98.2 % (94.0-100.0); BLOOD GAS PCO2 37.5 mmHg (32.0-45.0); BLOOD GAS PO2 127.2 mmHg (75.0-100.0)
[2023-10-24 07:33] LABS: BLOOD GAS BASE EXCESS -8.9 mmol/L (-3.0-3.0); BLOOD GAS HCO3 17.1 mmol/L (21.0-27.0); BLOOD GAS PH 7.278 (7.350-7.450)
[2023-10-24 07:34] LABS: ALLEN'S TEST POSITIVE (P)
[2023-10-24] MEDS: OCTREOTIDE ACETATE 1,250 MCG in NS 248.75 ML IV SCH (08:04)
[2023-10-24 10:43] LABS: BASOPHILS % (AUTO) 0.3 % (0.0-2.0); HEMATOCRIT 23.1 % (36-54); LYMPHOCYTES # (AUTO) 0.6 K/uL (1.0-5.5); LYMPHOCYTES % (AUTO) 9.5 % (20.5-51.5); MEAN CORPUSCULAR HEMOGLOBIN 30 pg (27-31); MEAN CORPUSCULAR HGB CONC 35 % (32-36); MEAN CORPUSCULAR VOLUME 87 fL (79.0-98.0); MONOCYTES # (AUTO) 0.2 K/uL (0.0-1.0); MONOCYTES % (AUTO) 3.2 % (1.7-9.3); NEUTROPHILS # (AUTO) 5.8 K/uL (1.8-7.7); RED BLOOD CELL COUNT(AUTO) 2.65 MIL/uL (4.2-6.2); RED CELL DISTRIBUTION WIDTH 16.2 % (9.0-15.0); WHITE BLOOD COUNT (AUTO) 6.7 K/uL (4.8-10.8)
[2023-10-24 10:57] LABS: ALBUMIN 1.5 g/dL (3.4-4.8); CREATININE 2.36 mg/dL (0.55-1.30); POTASSIUM 4.1 mmol/L (3.5-5.1); TOTAL BILIRUBIN 4.6 mg/dL (0.0-1.0); TOTAL PROTEIN, SERUM 5.8 g/dL (6.4-8.3)
[2023-10-24 10:59] LABS: CALCIUM 6.3 mg/dL (8.4-11.0)
[2023-10-24 11:41] LABS: PLATELET COUNT (AUTO) 38 K/uL (130-430)
[2023-10-24] MEDS: PHYTONADIONE 10 MG in NS 50 ML IV ONE (12:14)
[2023-10-24] MEDS: NS IV ONE (15:20)
[2023-10-24] MEDS: DESMOPRESSIN ACETATE IV ONE (15:20)
[2023-10-24] MEDS ORDERED: DESMOPRESSIN ACETATE 4 MCG/ML AMP IVP SCH (21:00)
[2023-10-24] MEDS: THIAMINE HCL 200 MG/2 ML VIAL ONE (22:49)
[2023-10-24] MEDS: POTASSIUM ACETATE IV SCH (22:58)
[2023-10-24] MEDS: TPN CENTRAL IV SCH (22:58)
[2023-10-24] MEDS: CALCIUM GLUCONATE IV SCH (22:58)
[2023-10-24] MEDS: [UNRECOGNIZED DRUG - OTHER] IV SCH (22:58)
[2023-10-25] VITALS (35 sets, daily range): BP systolic 122–152; PULSE 87–110; RESP 17–32; TEMP 97.3–98.1; O2SAT 94–100
[2023-10-25 06:19] LABS: ALBUMIN 1.5 g/dL (3.4-4.8); CREATININE 2.26 mg/dL (0.55-1.30); PHOSPHORUS 5.4 mg/dL (2.7-4.5); POTASSIUM 4.2 mmol/L (3.5-5.1); TOTAL BILIRUBIN 4.8 mg/dL (0.0-1.0); TOTAL PROTEIN, SERUM 6.3 g/dL (6.4-8.3)
[2023-10-25 07:01] LABS: CALCIUM 6.8 mg/dL (8.4-11.0)
[2023-10-25 07:57] LABS: INR 1.4 (0.80-1.20); PROTHROMBIN TIME 13.8 SECS (9.5-12.5)
[2023-10-25 08:36] LABS: BASOPHILS % (AUTO) 0.2 % (0.0-2.0); HEMATOCRIT 22.3 % (36-54); HEMOGLOBIN 8.2 g/dL (14.0-18.0); LYMPHOCYTES # (AUTO) 0.3 K/uL (1.0-5.5); LYMPHOCYTES % (AUTO) 6.1 % (20.5-51.5); MEAN CORPUSCULAR HEMOGLOBIN 32 pg (27-31); MEAN CORPUSCULAR VOLUME 88 fL (79.0-98.0); MONOCYTES # (AUTO) 0.1 K/uL (0.0-1.0); MONOCYTES % (AUTO) 1.1 % (1.7-9.3); NEUTROPHILS # (AUTO) 5.3 K/uL (1.8-7.7); RED BLOOD CELL COUNT(AUTO) 2.52 MIL/uL (4.2-6.2); RED CELL DISTRIBUTION WIDTH 16.5 % (9.0-15.0); WHITE BLOOD COUNT (AUTO) 5.7 K/uL (4.8-10.8)
[2023-10-25 08:38] LABS: PLATELET COUNT (AUTO) 33 K/uL (130-430)
[2023-10-25] MEDS: BALSAM PERU/CASTOR OIL 56.7 GM OINT...G. TP SCH (09:57)
[2023-10-25 10:39] LABS: MEAN CORPUSCULAR HGB CONC 36 % (32-36)
[2023-10-25 10:40] LABS: NEUTROPHILS % (AUTO) 92.6 % (40.0-70.0)
[2023-10-25] MEDS: CEFEPIME 1 GM in D5W 50 ML IV SCH (13:12)
[2023-10-25] MEDS: MICAFUNGIN SODIUM 100 MG in NS 100 ML IV SCH (13:12)
[2023-10-25] MEDS: CALCIUM GLUCONATE IV SCH (20:58)
[2023-10-25] MEDS: [UNRECOGNIZED DRUG - OTHER] IV SCH (20:58)
[2023-10-25] MEDS: POTASSIUM ACETATE IV SCH (20:58)
[2023-10-25] MEDS: TPN CENTRAL IV SCH (20:58)
[2023-10-26] VITALS (35 sets, daily range): BP systolic 124–168; PULSE 68–105; RESP 23–35; TEMP 97.5–99.3; O2SAT 93–100
[2023-10-26 06:39] LABS: BASOPHILS % (AUTO) 0.2 % (0.0-2.0); HEMOGLOBIN 7.6 g/dL (14.0-18.0); LYMPHOCYTES # (AUTO) 0.4 K/uL (1.0-5.5); LYMPHOCYTES % (AUTO) 9.2 % (20.5-51.5); MEAN CORPUSCULAR HEMOGLOBIN 32 pg (27-31); MEAN CORPUSCULAR HGB CONC 36 % (32-36); MEAN CORPUSCULAR VOLUME 90 fL (79.0-98.0); MONOCYTES # (AUTO) 0.1 K/uL (0.0-1.0); MONOCYTES % (AUTO) 3.1 % (1.7-9.3); NEUTROPHILS # (AUTO) 3.9 K/uL (1.8-7.7); NEUTROPHILS % (AUTO) 87.5 % (40.0-70.0); RED BLOOD CELL COUNT(AUTO) 2.37 MIL/uL (4.2-6.2); RED CELL DISTRIBUTION WIDTH 16.5 % (9.0-15.0); WHITE BLOOD COUNT (AUTO) 4.5 K/uL (4.8-10.8)
[2023-10-26 07:02] LABS: ALBUMIN 1.5 g/dL (3.4-4.8); CALCIUM 7.9 mg/dL (8.4-11.0); CREATININE 1.77 mg/dL (0.55-1.30); PHOSPHORUS 3.9 mg/dL (2.7-4.5); POTASSIUM 4.2 mmol/L (3.5-5.1); TOTAL BILIRUBIN 5.7 mg/dL (0.0-1.0); TOTAL PROTEIN, SERUM 5.8 g/dL (6.4-8.3)
[2023-10-26 08:35] LABS: HEMATOCRIT 21.2 % (36-54); PLATELET COUNT (AUTO) 23 K/uL (130-430)
[2023-10-26] MEDS ORDERED: FOLIC ACID IV SCH (09:17)
[2023-10-26] MEDS ORDERED: THIAMINE HCL IV SCH (09:17)
[2023-10-26] MEDS ORDERED: D5W IV SCH (09:17)
[2023-10-26] MEDS: PHYTONADIONE 10 MG in NS 50 ML IV ONE (14:04)
[2023-10-26] MEDS: D5W 1,000 ML IV SCH (20:34)
[2023-10-26] MEDS: THIAMINE HCL IV SCH (20:41)
[2023-10-26] MEDS: D5W IV SCH (20:41)
[2023-10-26] MEDS: FOLIC ACID IV SCH (20:41)
[2023-10-26] MEDS: CALCIUM GLUCONATE IV SCH (20:42)
[2023-10-26] MEDS: [UNRECOGNIZED DRUG - OTHER] IV SCH (20:42)
[2023-10-26] MEDS: POTASSIUM ACETATE IV SCH (20:42)
[2023-10-26] MEDS: TPN CENTRAL IV SCH (20:42)
[2023-10-27] VITALS (30 sets, daily range): BP systolic 125–142; PULSE 74–98; RESP 25–31; TEMP 96.3–99.1; O2SAT 94–100
[2023-10-27 06:54] LABS: BASOPHILS % (AUTO) 0.2 % (0.0-2.0); HEMATOCRIT 22.2 % (36-54); HEMOGLOBIN 7.9 g/dL (14.0-18.0); LYMPHOCYTES # (AUTO) 0.2 K/uL (1.0-5.5); LYMPHOCYTES % (AUTO) 9.4 % (20.5-51.5); MEAN CORPUSCULAR HEMOGLOBIN 32 pg (27-31); MEAN CORPUSCULAR HGB CONC 36 % (32-36); MEAN CORPUSCULAR VOLUME 91 fL (79.0-98.0); MONOCYTES # (AUTO) 0.1 K/uL (0.0-1.0); MONOCYTES % (AUTO) 5.3 % (1.7-9.3); NEUTROPHILS # (AUTO) 2.2 K/uL (1.8-7.7); NEUTROPHILS % (AUTO) 85.1 % (40.0-70.0); RED BLOOD CELL COUNT(AUTO) 2.45 MIL/uL (4.2-6.2); RED CELL DISTRIBUTION WIDTH 16.9 % (9.0-15.0); WHITE BLOOD COUNT (AUTO) 2.6 K/uL (4.8-10.8)
[2023-10-27 07:17] LABS: ALBUMIN 1.5 g/dL (3.4-4.8); CALCIUM 8.4 mg/dL (8.4-11.0); CREATININE 1.38 mg/dL (0.55-1.30); PHOSPHORUS 3.4 mg/dL (2.7-4.5); POTASSIUM 3.8 mmol/L (3.5-5.1); TOTAL BILIRUBIN 6.8 mg/dL (0.0-1.0); TOTAL PROTEIN, SERUM 5.6 g/dL (6.4-8.3)
[2023-10-27 07:34] LABS: PLATELET COUNT (AUTO) 15 K/uL (130-430)
[2023-10-27 08:30] LABS: INR 1.4 (0.80-1.20); PROTHROMBIN TIME 13.9 SECS (9.5-12.5)
[2023-10-27] MEDS: methylPREDNISolone SOD SUCC/PF 62.5 MG/ML VIAL IVP SCH (22:17)
[2023-10-28] VITALS (36 sets, daily range): BP systolic 125–142; PULSE 83–125; RESP 26–30; TEMP 96.9–98.4; O2SAT 93–100
[2023-10-28 06:17] LABS: BASOPHILS % (AUTO) 0.1 % (0.0-2.0); HEMOGLOBIN 7.9 g/dL (14.0-18.0); LYMPHOCYTES # (AUTO) 0.2 K/uL (1.0-5.5); LYMPHOCYTES % (AUTO) 10.3 % (20.5-51.5); MEAN CORPUSCULAR HEMOGLOBIN 34 pg (27-31); MEAN CORPUSCULAR HGB CONC 37 % (32-36); MEAN CORPUSCULAR VOLUME 92 fL (79.0-98.0); MONOCYTES # (AUTO) 0.1 K/uL (0.0-1.0); MONOCYTES % (AUTO) 5.8 % (1.7-9.3); NEUTROPHILS # (AUTO) 1.9 K/uL (1.8-7.7); NEUTROPHILS % (AUTO) 83.8 % (40.0-70.0); RED BLOOD CELL COUNT(AUTO) 2.32 MIL/uL (4.2-6.2); RED CELL DISTRIBUTION WIDTH 17.2 % (9.0-15.0); WHITE BLOOD COUNT (AUTO) 2.2 K/uL (4.8-10.8)
[2023-10-28 06:43] LABS: ALBUMIN 1.4 g/dL (3.4-4.8); CALCIUM 7.8 mg/dL (8.4-11.0); CREATININE 1.08 mg/dL (0.55-1.30); PHOSPHORUS 3.3 mg/dL (2.7-4.5); POTASSIUM 4.2 mmol/L (3.5-5.1); TOTAL BILIRUBIN 6.3 mg/dL (0.0-1.0); TOTAL PROTEIN, SERUM 5.5 g/dL (6.4-8.3)
[2023-10-28 07:59] LABS: HEMATOCRIT 21.3 % (36-54); PLATELET COUNT (AUTO) 16 K/uL (130-430)
[2023-10-28] MEDS: SULFAMETHOXAZOLE /TRIMETHOPRIM 10 ML in D5W 250 ML IV SCH (14:32)
[2023-10-28] MEDS: NAFCILLIN SODIUM 2 GM in NS 100 ML IV SCH (17:37)
[2023-10-29] VITALS (33 sets, daily range): BP systolic 102–150; PULSE 104–151; RESP 29–38; TEMP 98–101.8; O2SAT 87–97
[2023-10-29] MEDS: ONDANSETRON HCL 4 MG/2 ML VIAL IVP PRN (02:47)
[2023-10-29] MEDS: ACETAMINOPHEN 325 MG TABLET PO PRN (02:47)
[2023-10-29 05:55] LABS: BASOPHILS % (AUTO) 0.1 % (0.0-2.0); HEMOGLOBIN 7.3 g/dL (14.0-18.0); LYMPHOCYTES # (AUTO) 0.4 K/uL (1.0-5.5); LYMPHOCYTES % (AUTO) 10.8 % (20.5-51.5); MEAN CORPUSCULAR HEMOGLOBIN 33 pg (27-31); MEAN CORPUSCULAR HGB CONC 36 % (32-36); MEAN CORPUSCULAR VOLUME 91 fL (79.0-98.0); MONOCYTES # (AUTO) 0.3 K/uL (0.0-1.0); MONOCYTES % (AUTO) 8.9 % (1.7-9.3); NEUTROPHILS # (AUTO) 2.8 K/uL (1.8-7.7); NEUTROPHILS % (AUTO) 80.2 % (40.0-70.0); RED BLOOD CELL COUNT(AUTO) 2.22 MIL/uL (4.2-6.2); RED CELL DISTRIBUTION WIDTH 17.5 % (9.0-15.0); WHITE BLOOD COUNT (AUTO) 3.5 K/uL (4.8-10.8)
[2023-10-29 06:29] LABS: ALBUMIN 1.4 g/dL (3.4-4.8); CALCIUM 8.3 mg/dL (8.4-11.0); CREATININE 1.27 mg/dL (0.55-1.30); PHOSPHORUS 3.5 mg/dL (2.7-4.5); POTASSIUM 4.1 mmol/L (3.5-5.1); TOTAL BILIRUBIN 11.7 mg/dL (0.0-1.0); TOTAL PROTEIN, SERUM 5.2 g/dL (6.4-8.3)
[2023-10-29 07:43] LABS: HEMATOCRIT 20.3 % (36-54); PLATELET COUNT (AUTO) 28 K/uL (130-430)
[2023-10-29] MEDS: TPN CENTRAL IV SCH (20:57)
[2023-10-29] MEDS: SODIUM CHLORIDE IV SCH (20:57)
[2023-10-29] MEDS: [UNRECOGNIZED DRUG - OTHER] IV SCH (20:57)
[2023-10-29] MEDS: POTASSIUM ACETATE IV SCH (20:57)
[2023-10-30] VITALS (32 sets, daily range): BP systolic 109–133; PULSE 72–107; RESP 22–33; TEMP 97.2–98; O2SAT 95–100
[2023-10-30 05:59] LABS: BASOPHILS % (AUTO) 0.1 % (0.0-2.0); LYMPHOCYTES # (AUTO) 0.3 K/uL (1.0-5.5); LYMPHOCYTES % (AUTO) 8.5 % (20.5-51.5); MEAN CORPUSCULAR HEMOGLOBIN 33 pg (27-31); MEAN CORPUSCULAR HGB CONC 36 % (32-36); MEAN CORPUSCULAR VOLUME 92 fL (79.0-98.0); MONOCYTES # (AUTO) 0.2 K/uL (0.0-1.0); MONOCYTES % (AUTO) 6.4 % (1.7-9.3); NEUTROPHILS # (AUTO) 2.8 K/uL (1.8-7.7); RED BLOOD CELL COUNT(AUTO) 2.16 MIL/uL (4.2-6.2); RED CELL DISTRIBUTION WIDTH 17.8 % (9.0-15.0); WHITE BLOOD COUNT (AUTO) 3.3 K/uL (4.8-10.8)
[2023-10-30 07:17] LABS: ALBUMIN 1.4 g/dL (3.4-4.8); CALCIUM 8.2 mg/dL (8.4-11.0); CREATININE 1.31 mg/dL (0.55-1.30); PHOSPHORUS 3.2 mg/dL (2.7-4.5); POTASSIUM 3.6 mmol/L (3.5-5.1); TOTAL PROTEIN, SERUM 4.9 g/dL (6.4-8.3)
[2023-10-30 07:28] LABS: TOTAL BILIRUBIN 16.6 mg/dL (0.0-1.0)
[2023-10-30 08:27] LABS: HEMATOCRIT 19.7 % (36-54)
[2023-10-30 10:42] LABS: PLATELET COUNT (AUTO) 29 K/uL (130-430)
[2023-10-30] MEDS: TPN CENTRAL IV SCH (21:02)
[2023-10-30] MEDS: SODIUM CHLORIDE IV SCH (21:02)
[2023-10-30] MEDS: [UNRECOGNIZED DRUG - OTHER] IV SCH (21:02)
[2023-10-30] MEDS: POTASSIUM ACETATE IV SCH (21:02)
[2023-10-31] VITALS (32 sets, daily range): BP systolic 111–143; PULSE 92–111; RESP 23–43; TEMP 97–97.9; O2SAT 94–100
[2023-10-31 06:10] LABS: ALBUMIN 1.3 g/dL (3.4-4.8); CALCIUM 8.2 mg/dL (8.4-11.0); CREATININE 1.21 mg/dL (0.55-1.30); PHOSPHORUS 2.7 mg/dL (2.7-4.5); POTASSIUM 3.7 mmol/L (3.5-5.1); TOTAL PROTEIN, SERUM 4.6 g/dL (6.4-8.3)
[2023-10-31 06:38] LABS: BASOPHILS % (AUTO) 0.1 % (0.0-2.0); EOSINOPHILS % (AUTO) 0.1 % (0.0-4.0); HEMOGLOBIN 7.2 g/dL (14.0-18.0); LYMPHOCYTES # (AUTO) 0.2 K/uL (1.0-5.5); LYMPHOCYTES % (AUTO) 6.8 % (20.5-51.5); MEAN CORPUSCULAR HEMOGLOBIN 32 pg (27-31); MEAN CORPUSCULAR HGB CONC 34 % (32-36); MEAN CORPUSCULAR VOLUME 93 fL (79.0-98.0); MONOCYTES # (AUTO) 0.2 K/uL (0.0-1.0); MONOCYTES % (AUTO) 5.5 % (1.7-9.3); NEUTROPHILS # (AUTO) 2.7 K/uL (1.8-7.7); NEUTROPHILS % (AUTO) 87.5 % (40.0-70.0); RED BLOOD CELL COUNT(AUTO) 2.27 MIL/uL (4.2-6.2); RED CELL DISTRIBUTION WIDTH 18.1 % (9.0-15.0)
[2023-10-31 06:40] LABS: TOTAL BILIRUBIN 17.5 mg/dL (0.0-1.0)
[2023-10-31 08:05] LABS: HEMATOCRIT 21.1 % (36-54)
[2023-10-31 08:06] LABS: PLATELET COUNT (AUTO) 36 K/uL (130-430)
[2023-10-31 13:06] LABS: HEPATITIS B CORE AB, TOTAL Negative (Negative); HEPATITIS B SURFACE AG Negative (Negative); HEPATITIS C VIRUS AB Non Reactive (Non Reactive)
[2023-10-31] MEDS ORDERED: COMMUNICATION ORDER XX ONE (16:00)
[2023-10-31] MEDS: SODIUM CHLORIDE IV SCH (22:56)
[2023-10-31] MEDS: POTASSIUM ACETATE IV SCH (22:56)
[2023-10-31] MEDS: TPN CENTRAL IV SCH (22:56)
[2023-10-31] MEDS: [UNRECOGNIZED DRUG - OTHER] IV SCH (22:56)
[2023-10-31] MEDS: K PHOS IV SCH (22:56)
[2023-10-31] MEDS: methylPREDNISolone SOD SUCC/PF 62.5 MG/ML VIAL IVP SCH (23:29)
[2023-11-01] VITALS (33 sets, daily range): BP systolic 93–127; PULSE 86–97; RESP 15–33; TEMP 95.4–97.5; O2SAT 1–100
[2023-11-01 05:36] LABS: BASOPHILS % (AUTO) 0.1 % (0.0-2.0); LYMPHOCYTES # (AUTO) 0.4 K/uL (1.0-5.5); LYMPHOCYTES % (AUTO) 11.9 % (20.5-51.5); MEAN CORPUSCULAR HEMOGLOBIN 32 pg (27-31); MEAN CORPUSCULAR HGB CONC 34 % (32-36); MEAN CORPUSCULAR VOLUME 94 fL (79.0-98.0); MONOCYTES # (AUTO) 0.2 K/uL (0.0-1.0); NEUTROPHILS # (AUTO) 3.1 K/uL (1.8-7.7); RED BLOOD CELL COUNT(AUTO) 2.22 MIL/uL (4.2-6.2); RED CELL DISTRIBUTION WIDTH 18.9 % (9.0-15.0); WHITE BLOOD COUNT (AUTO) 3.8 K/uL (4.8-10.8)
[2023-11-01 06:18] LABS: ALBUMIN 1.2 g/dL (3.4-4.8); CREATININE 1.14 mg/dL (0.55-1.30); PHOSPHORUS 2.1 mg/dL (2.7-4.5); POTASSIUM 3.9 mmol/L (3.5-5.1); TOTAL PROTEIN, SERUM 4.3 g/dL (6.4-8.3)
[2023-11-01 06:48] LABS: TOTAL BILIRUBIN 20.3 mg/dL (0.0-1.0)
[2023-11-01 07:43] LABS: HEMATOCRIT 20.8 % (36-54)
[2023-11-01 07:44] LABS: PLATELET COUNT (AUTO) 37 K/uL (130-430)
[2023-11-01] MEDS: [UNRECOGNIZED DRUG - OTHER] IV SCH (21:00)
[2023-11-01] MEDS: SODIUM CHLORIDE IV SCH (21:00)
[2023-11-01] MEDS: K PHOS IV SCH (21:00)
[2023-11-01] MEDS: TPN CENTRAL IV SCH (21:00)
[2023-11-01] MEDS: POTASSIUM ACETATE IV SCH (21:00)
[2023-11-02] VITALS (32 sets, daily range): BP systolic 91–114; PULSE 98–111; RESP 22–44; TEMP 96.5–97.5; O2SAT 90–97
[2023-11-02 06:37] LABS: ALBUMIN 1.2 g/dL (3.4-4.8); CALCIUM 7.8 mg/dL (8.4-11.0); CREATININE 1.33 mg/dL (0.55-1.30); PHOSPHORUS 3.3 mg/dL (2.7-4.5); TOTAL PROTEIN, SERUM 4.4 g/dL (6.4-8.3)
[2023-11-02 07:15] LABS: BASOPHILS % (AUTO) 0.1 % (0.0-2.0); EOSINOPHILS % (AUTO) 0.2 % (0.0-4.0); HEMATOCRIT 23.7 % (36-54); HEMOGLOBIN 8.1 g/dL (14.0-18.0); LYMPHOCYTES # (AUTO) 0.8 K/uL (1.0-5.5); LYMPHOCYTES % (AUTO) 11.6 % (20.5-51.5); MEAN CORPUSCULAR HEMOGLOBIN 32 pg (27-31); MEAN CORPUSCULAR HGB CONC 34 % (32-36); MEAN CORPUSCULAR VOLUME 94 fL (79.0-98.0); MONOCYTES # (AUTO) 0.4 K/uL (0.0-1.0); MONOCYTES % (AUTO) 6.2 % (1.7-9.3); NEUTROPHILS # (AUTO) 5.6 K/uL (1.8-7.7); NEUTROPHILS % (AUTO) 81.9 % (40.0-70.0); RED BLOOD CELL COUNT(AUTO) 2.52 MIL/uL (4.2-6.2); RED CELL DISTRIBUTION WIDTH 19.8 % (9.0-15.0); WHITE BLOOD COUNT (AUTO) 6.9 K/uL (4.8-10.8)
[2023-11-02 07:50] LABS: ANISOCYTOSIS 2+; PLATELET COUNT (AUTO) 54 K/uL (130-430); POLYCHROMASIA 2+
[2023-11-02 08:22] LABS: TOTAL BILIRUBIN 27.9 mg/dL (0.0-1.0)
[2023-11-02] MEDS: methylPREDNISolone SOD SUCC/PF 62.5 MG/ML VIAL IVP SCH (20:49)
[2023-11-02] MEDS ORDERED: POTASSIUM ACETATE IV SCH (21:00)
[2023-11-02] MEDS ORDERED: [UNRECOGNIZED DRUG - OTHER] IV SCH (21:00)
[2023-11-02] MEDS ORDERED: TPN CENTRAL IV SCH (21:00)
[2023-11-02] MEDS ORDERED: SODIUM CHLORIDE IV SCH (21:00)
[2023-11-02] MEDS ORDERED: K PHOS IV SCH (21:00)
[2023-11-03] VITALS (31 sets, daily range): BP systolic 90–138; PULSE 90–123; RESP 21–43; TEMP 96.6–97.1; O2SAT 92–99
[2023-11-03] MEDS: MIDAZOLAM IN NACL,ISO-OSMOT/PF 100 ML IV PRN (01:07)
[2023-11-03 05:30] LABS: BASOPHILS % (AUTO) 0.2 % (0.0-2.0); HEMATOCRIT 22.6 % (36-54); HEMOGLOBIN 7.8 g/dL (14.0-18.0); LYMPHOCYTES # (AUTO) 1.3 K/uL (1.0-5.5); LYMPHOCYTES % (AUTO) 14.6 % (20.5-51.5); MEAN CORPUSCULAR HEMOGLOBIN 32 pg (27-31); MEAN CORPUSCULAR HGB CONC 34 % (32-36); MEAN CORPUSCULAR VOLUME 94 fL (79.0-98.0); MONOCYTES # (AUTO) 0.4 K/uL (0.0-1.0); MONOCYTES % (AUTO) 3.9 % (1.7-9.3); NEUTROPHILS # (AUTO) 7.5 K/uL (1.8-7.7); NEUTROPHILS % (AUTO) 81.3 % (40.0-70.0); RED BLOOD CELL COUNT(AUTO) 2.39 MIL/uL (4.2-6.2); RED CELL DISTRIBUTION WIDTH 20.3 % (9.0-15.0); WHITE BLOOD COUNT (AUTO) 9.2 K/uL (4.8-10.8)
[2023-11-03 05:42] LABS: PLATELET COUNT (AUTO) 65 K/uL (130-430)
[2023-11-03 06:29] LABS: ALBUMIN 1.3 g/dL (3.4-4.8); CALCIUM 7.4 mg/dL (8.4-11.0); CREATININE 1.92 mg/dL (0.55-1.30); PHOSPHORUS 5.4 mg/dL (2.7-4.5); TOTAL PROTEIN, SERUM 4.2 g/dL (6.4-8.3)
[2023-11-03 06:38] LABS: POTASSIUM 5.9 mmol/L (3.5-5.1)
[2023-11-03 06:39] LABS: TOTAL BILIRUBIN 34.5 mg/dL (0.0-1.0)
[2023-11-03 09:04] LABS: ABG O2 SAT% ESTIMATE 98.3 % (94.0-100.0); BLOOD GAS PCO2 24.6 mmHg (32.0-45.0); BLOOD GAS PH 7.334 (7.350-7.450); BLOOD GAS PO2 121.4 mmHg (75.0-100.0)
[2023-11-03 09:08] LABS: ALLEN'S TEST POSITIVE (P); BLOOD GAS HCO3 12.8 mmol/L (21.0-27.0)
[2023-11-03] MEDS: INSULIN REGULAR, HUMAN 100 UNITS/ML, 3 ML VIAL SUBCUT ONE (12:30)
[2023-11-03] MEDS: SODIUM BICARBONATE 8.4% JECT 50 MEQ/50 ML SYRINGE IVP ONE (12:53)
[2023-11-03] MEDS: NOREPINEPHRINE 4 MG/4 ML VIAL IV ONE (13:38)
[2023-11-03] MEDS: CALCIUM GLUC 1 GM/100ML-NACL 100 ML IV ONE (15:56)
[2023-11-03] MEDS: ALBUMIN HUMAN 25% 50 ML IV SCH (17:37)
[2023-11-03] MEDS: MIDODRINE HCL 5 MG TABLET (PROAMATINE) NG SCH (20:10)
[2023-11-03] MEDS: OCTREOTIDE ACETATE 100 MCG/ML AMP SUBCUT SCH (21:01)
[2023-11-03 23:59] LABS: ALLEN'S TEST POSITIVE (P); BLOOD GAS HCO3 11.9 mmol/L (21.0-27.0); BLOOD GAS PCO2 28.7 mmHg (32.0-45.0); BLOOD GAS PH 7.235 (7.350-7.450); BLOOD GAS PO2 93.8 mmHg (75.0-100.0)
[2023-11-04] VITALS: BP_SYST 83; PULSE 119; RESP 22; TEMP 99.1; O2SAT 94
[2023-11-04] MEDS ORDERED: SODIUM BICARBONATE 8.4% JECT 50 MEQ/50 ML SYRINGE IVP ONE ×3 (00:15)
[2023-11-04] MEDS: SODIUM BICARBONATE 8.4% JECT 50 MEQ/50 ML SYRINGE ONE (00:27)
[2023-11-04] MEDS: NOREPINEPHR 4 MG/250 mL NS 250 ML IV PRN (00:34)
[2023-11-04 01:00] VITALS: BP_SYST 90; PULSE 106; RESP 23; O2SAT 96
[2023-11-04 02:00] VITALS: BP_SYST 82; PULSE 110; RESP 23; O2SAT 96
[2023-11-04 03:00] VITALS: BP_SYST 78; PULSE 108; RESP 25; O2SAT 94
[2023-11-04 04:00] VITALS: BP_SYST 96; PULSE 97; RESP 19; TEMP 98.7; O2SAT 92; O2SAT 94
[2023-11-04] MEDS ORDERED: EPINEPHrine JECT 0.1 MG/ML SYR ONE (04:10)
[2023-11-04] MEDS ORDERED: SODIUM BICARBONATE 8.4% JECT 50 MEQ/50 ML SYRINGE ONE (04:10)
[2023-11-04 04:35] VITALS: BP_SYST 78; PULSE 56
== END 2023-11-04 04:18 | DRG 720 ==
LOC: SED 15:43 → SIC 21:05
PROVIDERS: ADMIT Specialist; ATTEND Family Medicine
PROC: 05HY33Z Insertion of Infusion Device into Upper Vein, Percutaneous Approach (ICD-10-PCS; 2023-10-16)
PROC: B54NZZA Ultrasonography of Left Upper Extremity Veins, Guidance (ICD-10-PCS; 2023-10-16)
PROC: 0JBN0ZZ Excision of Right Lower Leg Subcutaneous Tissue and Fascia, Open Approach (ICD-10-PCS; 2023-10-18)
PROC: 5A0935A Assistance with Respiratory Ventilation, Less than 24 Consecutive Hours, High Flow/Velocity Cannula (ICD-10-PCS; 2023-10-19)
PROC: 5A09457 Assistance with Respiratory Ventilation, 24-96 Consecutive Hours, Continuous Positive Airway Pressure (ICD-10-PCS; 2023-10-20)
PROC: 5A0935A Assistance with Respiratory Ventilation, Less than 24 Consecutive Hours, High Flow/Velocity Cannula (ICD-10-PCS; 2023-10-20)
PROC: 5A1955Z Respiratory Ventilation, Greater than 96 Consecutive Hours (ICD-10-PCS; principal; 2023-10-22)
PROC: 0BH17EZ Insertion of Endotracheal Airway into Trachea, Via Natural or Artificial Opening (ICD-10-PCS; 2023-10-22)
PROC: 30233N1 Transfusion of Nonautologous Red Blood Cells into Peripheral Vein, Percutaneous Approach (ICD-10-PCS; 2023-10-24)
PROC: 0B9F8ZX Drainage of Right Lower Lung Lobe, Via Natural or Artificial Opening Endoscopic, Diagnostic (ICD-10-PCS; 2023-10-25)
PROC: 30233R1 Transfusion of Nonautologous Platelets into Peripheral Vein, Percutaneous Approach (ICD-10-PCS; 2023-10-25)
DX: A40.0 Sepsis due to streptococcus, group A (principal); J96.01 Acute respiratory failure with hypoxia; R65.21 Severe sepsis with septic shock; M72.6 Necrotizing fasciitis; E43 Unspecified severe protein-calorie malnutrition; D61.818 Other pancytopenia; N17.9 Acute kidney failure, unspecified; J15.69 Pneumonia due to other Gram-negative bacteria; J15.4 Pneumonia due to other streptococci; E88.09 Other disorders of plasma-protein metabolism, not elsewhere classified; D68.59 Other primary thrombophilia; E83.41 Hypermagnesemia; E83.51 Hypocalcemia; E87.6 Hypokalemia; E83.42 Hypomagnesemia; E83.52 Hypercalcemia; E11.65 Type 2 diabetes mellitus with hyperglycemia; F15.10 Other stimulant abuse, uncomplicated; E87.1 Hypo-osmolality and hyponatremia; K76.0 Fatty (change of) liver, not elsewhere classified; L02.415 Cutaneous abscess of right lower limb; N48.5 Ulcer of penis; E83.39 Other disorders of phosphorus metabolism; E80.6 Other disorders of bilirubin metabolism; Z20.822 Contact with and (suspected) exposure to COVID-19; L03.115 Cellulitis of right lower limb; Z68.1 Body mass index [BMI] 19.9 or less, adult
CPT/HCPCS: 36415; 36600; 70450-TC; 71045; 73590; 74018; 76376; 76700; 80048; 80053; 80076; 80307; 81000; 81001; 81015; 82272; 82570; 82607; 82728; 82746; 82803; 82948; 82962; 83010; 83540; 83550; 83605; 83615; 83735; 84100; 84302; 84443; 84478; 84484; 85007; 85018; 85025; 85027; 85384; 85610; 85651; 85730; 86704; 86803; 86880; 86886; 86900; 86901; 86920; 87040; 87070; 87075; 87081; 87186; 87205; 87340; 92950; 93005; 93306; 94002; 94003; 94640; 94660; 94760; 99291; C9113; G0482; J0171; J0330; J0610; J0692; J1030; J1100; J1815; J1940; J1956; J2060; J2248; J2270; J2354; J2405; J2543; J2597; J2704; J2930; J3010; J3370; J3411; J3430; J3475; J3480; J3490; J7030; J7050; J7060; J7131; P9021; P9034; P9041; P9046